=== PATIENT | male | born 1990 ===

== ENCOUNTER 2017-05-11 07:07 | Emergency (ER) | payer OTHER ==
[2017-05-11 07:08] VITALS: BMI 22.7
[2017-05-11 07:43] VITALS: RESP 18; O2SAT 98
--- NOTE | 2017-05-11 07:50 | ED PDOC ---
Arrival/HPI - General Chief Complaint: Flu-like Symptoms Time Seen by Provider: 05/11/17 07:40 Historian: Patient - History of Present Illness Narrative History of Present Illness (Text): 05/11/17 07:50 26 year old male, with no significant past medical history, presents to the Emergency department complaining of cough, sore throat and congestion for past few days. Patient informs symptoms have been persistent and requests medical attention. Patient denies any fever, chills, nausea, vomiting, diarrhea, abdominal pain, chest pain, shortness of breath, sick contact or any other complaints. Time/Duration: < week Symptom Course: Unchanged Activities at Onset: Light Context: Home Past Medical History - Provider Review Nursing Documentation Reviewed: Yes - Past History Past History: Non-Contributing - Infectious Disease Hx of Infectious Diseases: None - Tetanus Immunization Tetanus Immunization: Unknown - Psychiatric Hx Substance Use: No - Anesthesia Hx Anesthesia: No Family/Social History - Physician Review Nursing Documentation Reviewed: Yes Family/Social History: No Known Family HX Smoking Status: Never Smoked Hx Alcohol Use: Yes Frequency of alcohol use: Socially Hx Substance Use: No Allergies/Home Meds Allergies/Adverse Reactions: Allergies No Known Allergies Allergy (Verified 05/11/17 07:44) Home Medications: Home Meds Medication Instructions Recorded Confirmed No Known Home Med 05/11/17 05/11/17 Review of Systems - Physician Review All systems were reviewed & negative as marked: Yes - Review of Systems Constitutional: Normal. absent: Fevers Eyes: Normal ENT: Sore Throat, Sinus Congestion Respiratory: Cough. absent: SOB Cardiovascular: Normal. absent: Chest Pain Gastrointestinal: Normal. absent: Abdominal Pain, Diarrhea, Nausea, Vomiting Genitourinary Male: Normal Musculoskeletal: Normal Skin: Normal Neurological: Normal Endocrine: Normal Hemo/Lymphatic: Normal Psychiatric: Normal Physical Exam Vital Signs Reviewed: Yes Vital Signs Temp Pulse Resp BP Pulse Ox 05/11/17 11:23 98 F 72 18 120/69 98 05/11/17 07:41 97.7 F 58 L 18 128/85 98 Temperature: Afebrile Blood Pressure: Normal Pulse: Regular Respiratory Rate: Normal Appearance: Positive for: Well-Appearing, Non-Toxic, Comfortable Pain Distress: None Mental Status: Positive for: Alert and Oriented X 3 - Systems Exam Head: Present: Atraumatic, Normocephalic Pupils: Present: PERRL Extroacular Muscles: Present: EOMI Conjunctiva: Present: Normal Mouth: Present: Moist Mucous Membranes Pharnyx: Present: ERYTHEMA Neck: Present: Normal Range of Motion Respiratory/Chest: Present: Clear to Auscultation, Good Air Exchange. No: Respiratory Distress, Accessory Muscle Use Cardiovascular: Present: Regular Rate and Rhythm, Normal S1, S2. No: Murmurs Abdomen: Present: Normal Bowel Sounds. No: Tenderness, Distention, Peritoneal Signs Back: Present: Normal Inspection Upper Extremity: Present: Normal Inspection. No: Cyanosis, Edema Lower Extremity: Present: Normal Inspection. No: Edema Neurological: Present: GCS=15, CN II-XII Intact, Speech Normal Skin: Present: Warm, Dry, Normal Color. No: Rashes Psychiatric: Present: Alert, Oriented x 3, Normal Insight, Normal Concentration Medical Decision Making ED Course and Treatment: 05/11/17 07:53 Impression: 26 year old male presents to the Emergency department for cough, sore throat and sinus congestion. Plan: -- Chest X-ray -- Tylenol -- Rapid Flu A/B -- Rapid Strep -- Reassess and disposition Progress Notes: 05/11/17 17:13 cxr neg symtoms x 1 week . well appearing, vitals table. no indiciation for empiric tamiflu symptoms x 1 week. - Lab Interpretations Lab Results: Lab Results 05/11/17 08:10: Influenza Typ A,B (EIA) Negative for flu a/b 05/11/17 08:10: Grp A Beta Strep Ag Negative - RAD Interpretation Radiology Orders: 05/11/17 07:49 CXR [CHEST TWO VIEWS (PA/LAT)] [RAD] Stat - Medication Orders Current Medication Orders: Discontinued Medications Acetaminophen (Tylenol 325mg Tab) 975 mg PO STAT STA Stop: 05/11/17 07:51 Last Admin: 05/11/17 08:09 Dose: 975 mg [facility] Pain/Vitals Document 05/11/17 08:09 [facility] (Rec: 05/11/17 08:11 [facility]-[id number]) Pain Reassessment Is This A Pain ReAssessment? No - Scribe Statement The provider has reviewed the documentation as recorded by the Scribe David Hurtado. All medical record entries made by the Scribe were at my direction and personally dictated by me. I have reviewed the chart and agree that the record accurately reflects my personal performance of the history, physical exam, medical decision making, and the department course for this patient. I have also personally directed, reviewed, and agree with the discharge instructions and disposition. Disposition/Present on Arrival - Present on Arrival Any Indicators Present on Arrival: No History of DVT/PE: No History of Uncontrolled Diabetes: No Urinary Catheter: No History of Decub. Ulcer: No History Surgical Site Infection Following: None - Disposition Have Diagnosis and Disposition been Completed?: Yes Diagnosis: Viral syndrome Disposition: HOME/ ROUTINE Disposition Time: 11:00 Condition: STABLE Discharge Instructions (ExitCare): Viral Syndrome (ED) Print Language: KYRGYZ Additional Instructions: please follow up with your doctor. return to er with worsening symptoms or concerns Referrals: [facility] [Outside] - Follow up with primary [facility] [place] - Follow up with primary [facility] Lisseth Req, [Primary Care Provider] - Follow up with primary Forms: [facility] ([place])
[2017-05-11 11:42] VITALS: BP 120/69; PULSE 72; TEMP 98
== END 2017-05-11 11:30 | disposition home or self-care (01) ==
LOC: ED 07:07
DX: B34.9 Viral infection, unspecified (principal)

== ENCOUNTER 2017-08-01 17:12 | Emergency (ER) | payer OTHER ==
[2017-08-01 17:12] VITALS: BMI 22.7
--- NOTE | 2017-08-01 17:16 | ED PDOC ---
Arrival/HPI - General Time Seen by Provider: 08/01/17 17:13 Historian: Patient - History of Present Illness Narrative History of Present Illness (Text): 08/01/17 17:16 27 y/o male, no significant pmh, nkda, c/o rt. hand 2nd digit pain s/p smashed by the cooking machine yesterday at work. Aching pain, no skin tearing, no numbness or tingling, no laceration, no hand pain, no other medical or psychological complaints. Past Medical History - Provider Review Nursing Documentation Reviewed: Yes - Past History Past History: Non-Contributing - Infectious Disease Hx of Infectious Diseases: None - Tetanus Immunization Tetanus Immunization: Unknown - Psychiatric Hx Substance Use: No - Anesthesia Hx Anesthesia: No Family/Social History - Physician Review Nursing Documentation Reviewed: Yes Family/Social History: Unknown Family HX Smoking Status: Never Smoked Hx Alcohol Use: Yes Hx Substance Use: No Allergies/Home Meds Allergies/Adverse Reactions: Allergies No Known Allergies Allergy (Verified 08/01/17 17:43) Review of Systems - Review of Systems Constitutional: absent: Fatigue, Fevers Eyes: absent: Vision Changes ENT: absent: Hearing Changes Respiratory: absent: SOB, Cough Cardiovascular: absent: Chest Pain Gastrointestinal: absent: Abdominal Pain, Nausea, Vomiting Musculoskeletal: Arthralgias, Joint Swelling. absent: Back Pain, Neck Pain, Myalgias Skin: absent: Rash, Pruritis Neurological: absent: Headache, Dizziness Psychiatric: absent: Anxiety, Depression Physical Exam Vital Signs Reviewed: Yes Vital Signs Temp Pulse Resp BP Pulse Ox 08/01/17 18:59 98 F 70 18 120/69 99 08/01/17 17:43 98.1 F 62 17 135/76 99 Temperature: Afebrile Blood Pressure: Normal Pulse: Regular Respiratory Rate: Normal Appearance: Positive for: Well-Appearing, Non-Toxic, Comfortable Pain Distress: Moderate Mental Status: Positive for: Alert and Oriented X 3 - Systems Exam Head: Present: Atraumatic, Normocephalic Pupils: Present: PERRL Extroacular Muscles: Present: EOMI Conjunctiva: Present: Normal Mouth: Present: Moist Mucous Membranes Neck: Present: Normal Range of Motion Respiratory/Chest: Present: Clear to Auscultation, Good Air Exchange. No: Respiratory Distress, Accessory Muscle Use Cardiovascular: Present: Regular Rate and Rhythm, Normal S1, S2. No: Murmurs Abdomen: No: Tenderness, Distention, Peritoneal Signs Back: Present: Normal Inspection Upper Extremity: Present: Normal Inspection, Other (Rt. hand 2nd: +ttp and swelling with mild ecchymosis on the PIPJ, skin intact, no laceration or abrasion, FROM without limitation, sensation intact, motor 5/5, +radial pulse, capillary refill< 2 seconds, neurovascular intact. ). No: Cyanosis, Edema Lower Extremity: Present: Normal Inspection. No: Edema Neurological: Present: GCS=15, CN II-XII Intact, Speech Normal Skin: Present: Warm, Dry, Normal Color. No: Rashes Psychiatric: Present: Alert, Oriented x 3, Normal Insight, Normal Concentration Medical Decision Making ED Course and Treatment: 08/01/17 17:48 -Rt. hand xray -motrin -Observe and reassess 08/01/17 18:36 -Rt. hand 2nd digit show +distal phalanx fracture, no skin breaking, splint applied. -Discharge home with finger splint, motrin, ice compression, follow up with your own pmd and hand/curriculum and instruction specialist within 2 days, return to [facility] ER for any new or worsening signs or symptoms. - RAD Interpretation Radiology Orders: 08/01/17 17:45 HAND RIGHT 2ND DIGIT (FINGER) [RAD] Stat COMPARISON: None. FINDINGS: BONES: There is a minimally displaced fracture through the base of the 2nd distal phalanx. The fracture extends into the articular surface. JOINTS: Normal. No osteoarthritic changes. SOFT TISSUES: Normal. OTHER FINDINGS: None. IMPRESSION: There is a minimally displaced fracture through the base of the 2nd distal phalanx. The fracture extends into the articular surface. Forest Fire Management Officer: Radiologist - Medication Orders Current Medication Orders: Discontinued Medications Ibuprofen (Motrin Tab) 600 mg PO STAT STA Stop: 08/01/17 17:46 Last Admin: 08/01/17 17:56 Dose: 600 mg MAR Pain/Vitals Document 08/01/17 17:56 [facility] (Rec: 08/01/17 17:57 [facility] [id number]) Pain Reassessment Is This A Pain ReAssessment? No Sleep Is patient sleeping during reassessment? No Presence of Pain Presence of Pain Yes Pain Scale Used Pain Scale Used Numeric Location Left, Right or Bilateral Right Pain Location Body Site Finger Intensity 7 Scale Used Numeric - PA / CARTRIDGE GAUGER / Resident Statement MD/DO has reviewed & agrees with the documentation as recorded. Disposition/Present on Arrival - Present on Arrival Any Indicators Present on Arrival: No History of DVT/PE: No History of Uncontrolled Diabetes: No Urinary Catheter: No History of Decub. Ulcer: No History Surgical Site Infection Following: None - Disposition Have Diagnosis and Disposition been Completed?: Yes Diagnosis: Finger fracture Disposition: HOME/ ROUTINE Disposition Time: 17:49 Patient Plan: Discharge Condition: GOOD Additional Instructions: -Discharge home with finger splint, motrin, ice compression, follow up with your own pmd and hand/curriculum and instruction specialist within 2 days, return to [facility] ER for any new or worsening signs or symptoms. Prescriptions: Ibuprofen [Motrin Tab] 600 mg PO QID PRN #[id number] tab PRN Reason: Other Referrals: David Camacho III, MD [Medical Doctor] - Follow up with primary [facility] [place] [Outside] - Follow up with primary Forms: WORK NOTE
[2017-08-01 17:43] VITALS: O2SAT 99
[2017-08-01 18:59] VITALS: BP 120/69; PULSE 70; RESP 18; TEMP 98
--- NOTE | 2017-08-02 09:19 | RAD ---
PROCEDURE: Right Hand Radiographs. HISTORY: rt. hand 2nd digit PIPJ injury and pain COMPARISON: None. FINDINGS: BONES: There is a minimally displaced fracture through the base of the 2nd distal phalanx. The fracture extends into the articular surface. JOINTS: Normal. No osteoarthritic changes. SOFT TISSUES: Normal. OTHER FINDINGS: None. IMPRESSION: There is a minimally displaced fracture through the base of the 2nd distal phalanx. The fracture extends into the articular surface.
== END 2017-08-01 19:02 | disposition home or self-care (01) ==
LOC: ED 17:12
DX: S62.630A Displaced fracture of distal phalanx of right index finger, initial encounter for closed fracture (principal); W31.89XA Contact with other specified machinery, initial encounter; Y92.89 Other specified places as the place of occurrence of the external cause; Y99.8 Other external cause status